=== PATIENT | female | born 1995 | race Caucasian/White ===

== ENCOUNTER 2016-08-22 13:23 | Emergency (ER) | payer OTHER, BC ==
[~2016-08-22] VITALS: Ht 162.6 cm; Wt 51.8 kg
[2016-08-22 13:27] VITALS: BP 146/71; TEMP 98.2
[2016-08-22] MEDS ORDERED: VALTREX 50500 MG/TAB (13:30)
[2016-08-22] MEDS ORDERED: MICROGESTIN FE1 TA1 PO (13:30)
[2016-08-22] MEDS ORDERED: FLEXERIL 1010 MG/TAB PO (16:00)
[2016-08-22 16:14] VITALS: PULSE 75
== END 2016-08-22 16:15 | disposition home or self-care (01) ==
LOC: COL.ER 13:23
DX: S09.90XA Unspecified injury of head, initial encounter (principal); S16.1XXA Strain of muscle, fascia and tendon at neck level, initial encounter; V43.52XA Car driver injured in collision with other type car in traffic accident, initial encounter; Y92.410 Unspecified street and highway as the place of occurrence of the external cause